=== PATIENT | male | born 1955 | race African-American/Black ===

== ENCOUNTER → 2017-05-16 | Day surgery (SDC) | payer OTHER ==
[~2017-05-16] MED LIST: HYDRALAZINE HC100 MG PO; HYDROCODON-ACE1 EA12 PO; METFORMIN HCL500 M3 PO
--- NOTE | ~2017-05-16 | OR ---
Unit #: [id number] #: [id number] Patient: GABRIELA DORSEY [id number] [address] [address] [id number] O MR#: [id number] NAME: GABRIELA DORSEY ROOM: Date of Procedure: 05/16/2017 Admission Date: 05/16/2017 Surgeon: Glenroy Alexandra M.D. : 1955 Attending Physician: Glenroy Alexandra M.D. Primary Care Physician: Nancy Griffin A.P.R.N. OPERATIVE REPORT PROCEDURE PERFORMED Colonoscopy to cecum. INDICATIONS FOR PROCEDURE history of colon cancer. MEDICATIONS Monitored anesthesia. POSTOPERATIVE FINDINGS Normal exam PLAN Repeat colonoscopy in 10 years. DESCRIPTION OF PROCEDURE The patient was explained of the procedure, risks, and benefits along with risks and benefits of anesthesia. He was brought to the endoscopy room. Propofol anesthesia was given. Rectal exam was done, which was normal. Colonoscope was lubricated, passed up the rectum, advanced under direct vision all the way to the cecum. Cecum was identified by ileocecal valve and appendiceal orifice. I then started to pull the scope out carefully looking. No polyps, masses, or colitis were seen. Mucosa was normal and healthy. I retroflexed in the rectum, small hemorrhoids seen. The scope was gently pulled out. He tolerated it well. Dictated by... Víctor Gutierrez/gustavo TD: 05/17/2017 13:08 JOB #: [id number] Unit #: [id number] #: [id number] Patient: GABRIELA DORSEY OPERATIVE REPORT Page 1 of 1 X Glenroy Alexandra MD X PROCEDURE OPERATIVE NOTE
== END | disposition home or self-care (01) ==
LOC: COPS 10:28
DX: Z12.11 Encounter for screening for malignant neoplasm of colon (principal); K64.8 Other hemorrhoids; K21.9 Gastro-esophageal reflux disease without esophagitis; E11.9 Type 2 diabetes mellitus without complications; I10 Essential (primary) hypertension; J44.9 Chronic obstructive pulmonary disease, unspecified; F17.210 Nicotine dependence, cigarettes, uncomplicated; Z85.038 Personal history of other malignant neoplasm of large intestine; Z79.84 Long term (current) use of oral hypoglycemic drugs; Z79.899 Other long term (current) drug therapy; Z98.890 Other specified postprocedural states
CPT/HCPCS: 82947; J2250